=== PATIENT | female | born 1990 | race Caucasian/White ===

== ENCOUNTER → 2024-09-14 10:48 | Outpatient (CLI) | payer OTHER, SELFPAY ==
--- NOTE | 2024-09-14 10:52 | DI.US.S_ITS ---
PROCEDURE: US PELVIC COMPLETE INDICATIONS: LEFT PELVIC PAIN TECHNIQUE: Real-time scanning was performed of the pelvic organs, with image documentation. Additional endovaginal scanning was necessary due to incomplete visualization of the adnexal and endometrial structures by transabdominal scanning. COMPARISON: Report of study performed in 2019 FINDINGS: Uterus: Uterus is anteverted and normal in size at 7.5 x 5.4 x 5 cm cm. The myometrium is heterogeneous, with linear hyperechoic area. The endometrium measures 3.4 mm combined thickness. There is a focal hyperechoic lesion in the endometrium with flow measuring 8 x 7 mm. Small amount of fluid in the endometrium. Ovaries: The right ovary measures 3.9 x 2.7 x 2.3 cm. This was seen only on transabdominal examination. Contains a confluent hypoechoic structure without internal flow. This measures 1.7 x 1.2 x 1.1 cm. There is a complex solid and cystic structure in the left adnexa measuring 1.7 x 1.1 x 1.5 cm. Other: No pathologic free abdominal or pelvic fluid. IMPRESSION: 1. Prominent uterus with morphological features suggesting the possibility of adenomyosis. 2. Possible 8 mm endometrial polyp, can be further assessed on MRI. 3. Heterogeneous appearance of the right ovary, seen only on transabdominal examination, with possible endometrioma. This can also be further assessed on MRI. 4. Complex solid and cystic structure in the left adnexa in this patient who reports a history of left oophorectomy. The possibility of endometrioma can also be further assessed on MRI. We strive to produce accurate, complete, and clear reports of imaging services. To assist us in improving patient care, this report was composed using standard report templates and voice recognition software. Therefore, it may contain abnormal punctuation, insertions and/or omissions. Occasional wrong-word or sound-alike substitutions may occur. Though we review the report and make efforts to correct it, we do recommend that the report be read carefully in proper context to recognize any text inaccuracies. Dictated by: Graham Yang M.D. on 09/15/2024 at 16:21 Approved by: Graham Yang M.D. on 09/15/2024 at 16:27
== END ==
PROVIDERS: PCP Obstetrics & Gynecology; Referring Provider Obstetrics & Gynecology; Visit Provider Obstetrics & Gynecology
DX: R93.5 Abnormal findings on diagnostic imaging of other abdominal regions, including retroperitoneum (principal); N92.6 Irregular menstruation, unspecified
CPT/HCPCS: 76830; 76856

== ENCOUNTER 2024-10-11 10:31 | Day surgery (SDC) | payer OTHER, SELFPAY ==
[2024-10-08 13:22] VITALS: BMI 27.8
--- NOTE | 2024-10-11 | PATH_ITS ---
[facility] Accession Number: [id number] No. of containers..01 Tissue . 01 Material submitted: . adnexa - LEFT ADNEXAL MASS . 01 Clinical history: . 6-19 PER JEANNA, , SITE IS LEFT ADNEXAL MASS /FC . 01 Diagnosis: LEFT ADNEXAL MASS, LAPAROSCOPIC REMOVAL OF ADNEXAL MASS: Endometrioma (25 x 19 x 12 mm). No atypia or malignancy identified. [facility] 10/19/2024 1225 Local . 01 Comment: This case is also reviewed by Dr. Redd Mason (Julie), who agrees with the interpretation. . 01 Electronically signed: . Carole Rodriguez MD, Pathologist NPI- [id number] . 01 Gross description: . Received in formalin with two identifiers and R. adnexal mass (both the jar and the requisition state right however the operative report states left adnexal mass) [per phone conversation between Monica Chris and Jeanna nurse at Dr. Wright's office, all indications from Dr. Chirinos is it should be left adnexal mass and not the right side], is an irregular morales to violaceous, roughened soft tissue fragment weighing 3 grams and measuring 2.5 x 1.9 x 1.2 cm. A portion of the surface has adherent hemorrhagic material across an area measuring 2.3 x 1.2 cm. The ragged area consistent with cauterized margin is inked blue, and sectioning reveals a tubular soft tissue fragment with a lumen measuring 0.3 cm in greatest dimension running the length of the specimen. The wilson average 0.4 cm thick. The specimen is submitted entirely in cassettes A1-A3. ([id number]) /ANA LAURA 10/19/2024 [facility] Local . 01 Microscopic: . An immunohistochemistry panel is performed to further evaluate the cells of interest. The control stains show appropriate reactivity. . RESULTS: Block A3 Smooth muscle actin: Diffusely positive, confirms smooth muscle. PAX8: Positive in region of interest, consistent with Mullerian origin. . These IHC findings, coupled with the focus of hemorrhage in one tissue section, support an interpretation of endometrioma. . * This test was developed and the performance characteristics were validated by [facility]. It has not been cleared or approved by the [place]. Food and Drug Administration. . 01 Pathologist provided ICD-10: N83.8, R10.2 . 01 CPT . 599273, R98930, Y54489 Specimen Comment: A courtesy copy of this report has been sent to [phone] Performed at: [address] [id number] MD Cole Luna MD Phone: [phone]
[2024-10-11 12:39] VITALS: BMI 27.4
[2024-10-11 12:44] VITALS: BP 120/80; PULSE 121; RESP 12; TEMP 36.5; O2SAT 98
[2024-10-11] MEDS: LACTATED RINGERS 1,000 ML 42 ML IV ×2 (13:00→14:41)
[2024-10-11] MEDS: ACETAMINOPHEN 325 MG TABLET 975 MG PO (13:00)
--- NOTE | 2024-10-11 13:33 | PM.PREOP ---
Pre-operative Note COVID-19 COVID-19 status: Not tested Interval Note History & Physical reviewed/Exam performed by Physician: Yes Changes to H&P: No
--- NOTE | 2024-10-11 14:16 | SUR.OPER ---
Lithotomy on padded OR bed. [place] Pad Positioner under torso. Head on pillow, arms padded and tucked at sides. torso secured with purple strap. Legs secured in padded yellow fins stirrups.
[2024-10-11] MEDS: BUPIVACAINE 0.5% W/ EPI (PF) 30 ML VIAL INJ (14:26)
--- NOTE | 2024-10-11 15:08 | P.OP_ITS ---
Operative Date/Time/Diagnoses Date of procedure: 10/11/24 Time of procedure: 14:00 Pre-op diagnosis: Left lower quadrant pain Left adnexal mass Post-op diagnosis: other (SSA and abdomino-pelvic adhesions) Procedure & Clinicians Procedure: Procedures Operation Date: 10/11/24 12:00 Actual Procedure Side Surgeon p Laparoscopy with Lysis of Adhesions and Removal of Adnexal Mass, [employer] Demar Wright MD Indications: Kalie is a 33-year-old [id number], LMP about 2 weeks ago, who presents with several month history of unrelenting left-sided pelvic pain. The pain is sharp, incapacitating at times, and radiates into her left lower back. Patient experienced menarche at age 11 and pretty much as long as she can remember her periods have been extremely heavy with severe pain resulting in inability to go to school at times and to go to work at times without 6 or 800 mg of ibuprofen to get her through the day. Patient also has longstanding history of deep dyspareunia. She also has had significant left-sided incisional pain following her last delivery by section. This seems to be a different sort of pain as it is higher up and deeper in the pelvis. Patient's history is notable for removal of her left tube and ovary in 2009 due to a large dermoid and an appendectomy was performed at the same time. There is no record of endometriosis being noted at the time of that surgery. In October 2023 patient underwent endometrial ablation for continued menometrorrhagia passage of large clots and severe dysmenorrhea. The ablation has been successful in reducing her menstrual flow and her dysmenorrhea to the point where it is not disruptive of her life. Recent pelvic ultrasound performed 09/14/2024 shows: FINDINGS: Uterus: Uterus is anteverted and normal in size at 7.5 x 5.4 x 5 cm cm. The myometrium is heterogeneous, with linear hyperechoic area. The endometrium measures 3.4 mm combined thickness. There is a focal hyperechoic lesion in the endometrium with flow measuring 8 x 7 mm. Small amount of fluid in the endometrium. Ovaries: The right ovary measures 3.9 x 2.7 x 2.3 cm. This was seen only on transabdominal examination. Contains a confluent hypoechoic structure without internal flow. This measures 1.7 x 1.2 x 1.1 cm. There is a complex solid and cystic structure in the left adnexa measuring 1.7 x 1.1 x 1.5 cm. Other: No pathologic free abdominal or pelvic fluid. IMPRESSION: 1. Prominent uterus with morphological features suggesting the possibility of adenomyosis. 2. Possible 8 mm endometrial polyp, can be further assessed on MRI. 3. Heterogeneous appearance of the right ovary, seen only on transabdominal examination, with possible endometrioma. This can also be further assessed on MRI. 4. Complex solid and cystic structure in the left adnexa in this patient who reports a history of left oophorectomy. The possibility of endometrioma can also be further assessed on MRI. Following extended discussion about possible causes of her pain and the presence of a complex cystic lesion in the left adnexa. Because of the association of the pain with the presence of an uneventful identified lesion in the left adnexa where her left tube and ovary had been previously removed, she would like to proceed with diagnostic laparoscopy with plans for excision/fulguration of endometriosis if found and lysis of adhesions if present. She presents today for her scheduled surgery Surgeon: Demar Wright Anesthesia Type: General Operative Notes Findings: There was a drape of omental adhesions to the left of the midline below the umbilicus. These adhesions were taken down to the course of surgery. The uterus is normal in size. The distal left tube is surgically absent as is the left ovary. On the sidewall immediately adjacent to the left adnexa is a fibrotic solid and cystic mass which appears to be consistent with possible endometriosis. It was removed in toto. The right adnexa appears normal. There is a slight amount of light blood-tinged fluid in the posterior cul-de-sac but no evidence of endometriosis. The remainder of the abdomen and pelvis were norm al to laparoscopic visualization. Closure Type: primary Specimen(s): other (Left adnexal mass) Applied: none Estimated blood loss (mL): 10 Blood products transfused: none Procedure in detail: With the patient under satisfactory general anesthesia in the modified dorsal lithotomy position, the perineum, vagina, and abdomen were prepped and draped for IUD removal and laparoscopic bilateral salpingectomy. A pre-surgical safety time-out was then taken in accordance with [facility] Main OR protocols. The umbilicus was then infiltrated with 0.5% Marcaine with epinephrine and 1 cm vertical incision was made in the inferior aspect of the umbilicus. Veress needle was used to insufflate the abdomen with carbon dioxide and once appropriately insufflated, 5 mm bladeless trocar and sleeve were inserted through the incision. Proper placement of the sleeve was confirmed with laparoscopic visualization and insufflation of the abdomen continued. A 2nd and 3rd 5 mm laparoscopic port were placed in the right and left mid quadrants using a similar technique and using a 3 puncture technique, the abdomen and pelvis were visualized with the findings as noted above. The left adnexal mass was grasped with an atraumatic a power Seal device, the adhesions around the mass were lysed sharply and bluntly so as to free the mass from the sidewall without it a disrupting any underlying structures. The dissection continued all the way to the proximal tube which was coagulated and divided. It was submitted in addition to the left adnexal masses above pathologic specimen. The pelvis and abdomen were irrigated thoroughly and no other abnormalities were seen. The pneumoperitoneum was then vented and the ports removed from the abdominal wall. Port incisions were then closed with 4-0 Monocryl using inverted interrupted stitches and skin glue was applied. Appropriate dressings were then applied, patient was awakened, and transferred to the PACU for a period of observation after having tolerated the procedure well. Complications: none Post-operative Condition: stable Disposition: PACU
[2024-10-11 15:13] VITALS: BP 120/70; PULSE 111; RESP 16; TEMP 36.2; O2SAT 99
[2024-10-11 15:23] VITALS: BP 126/72; PULSE 115; RESP 16; O2SAT 99
== END 2024-10-11 16:08 | disposition home or self-care (01) ==
PROVIDERS: PCP Obstetrics & Gynecology; Referring Provider Obstetrics & Gynecology; Visit Provider Obstetrics & Gynecology
PROC: (CPT 49320; principal; 2024-10-11 12:00)
DX: N80.122 Deep endometriosis of left ovary (principal); N83.8 Other noninflammatory disorders of ovary, fallopian tube and broad ligament; N73.6 Female pelvic peritoneal adhesions (postinfective); Z90.79 Acquired absence of other genital organ(s); Z90.721 Acquired absence of ovaries, unilateral
CPT/HCPCS: 58662; 81025; J0330; J1100; J1885; J2250; J2405; J2704; J3010; J3490